=== PATIENT | female | born 2000 | race Caucasian/White ===

== ENCOUNTER 2025-07-24 19:18 | Inpatient (IN) | payer OTHER, SELFPAY ==
[2025-07-24 19:17] VITALS: BMI 32.8
[2025-07-24 19:30] VITALS: BP 133/92; PULSE 118
[2025-07-24 19:31] VITALS: PULSE 122; RESP 18; TEMP 36.9; O2SAT 98; O2SAT 99
[2025-07-24] MEDS: Lactated Ringers 1,000 ML 50 ML IV (19:37)
[2025-07-24 20:01] LABS: Hematocrit 30.5 % (37-47); Hemoglobin 9.6 g/dL (12.0-15.0); Immature Granulocytes Count 0.060 X10^3/uL (0.0-0.0); Mean Corp Hgb Conc 31.5 g/dL (32-36); Mean Corpuscular Volume 74.8 fL (81-99); Mean Platelet Vol. 9.2 fl (6.2-12.0); NRBC Flagged by Analyzer 0 % (0-5); Platelet Count 284 K/mm3 (150-450); RBC Distribution Width CV 15.5 % (11.6-14.6); RBC Distribution Width SD 41.3 fl (35.1-43.9); Red Blood Count 4.08 M/mm3 (4.2-5.4); White Blood Count 10.8 K/mm3 (4.4-11.0)
[2025-07-24 20:25] LABS: Syphilis Antibodies Nonreactive (Nonreactive)
--- NOTE | 2025-07-24 20:25 | HP.PCM.OB_ITS ---
HPI - General General Date of Admission: 07/24/25 Date of Service: 07/24/25 Chief Complaint: induction of labor HPI Narrative DIANA PARRA, is a 25 F who presents [facility] Home Medications ?Medication ?Instructions ?Recorded ?Last Taken ?Type aspirin 81 mg tablet,delayed 81 mg PO DAILY 07/24/25 Unknown History release vitamins no.102-iron 90 cap PO 07/06 04/30 Unknown History mg-folate 1 mg-dha 200 mg capsule Allergy/AdvReac Type Severity Reaction Status Date / Time methylphenidate (From Allergy Hives Verified 07/24/25 19:37 Concerta) tree nut (tree nuts) Allergy Mouth gets Verified 07/24/25 19:37 itchy latex AdvReac Itching Verified 07/24/25 19:37 Surgical History (Updated 07/24/25 @ 20:04 by Noreen Mckeon) History of surgery Social History Smoking Status: Never smoker Vital Signs Vital Signs Vital Signs: 07/24/25 19:30 07/24/25 19:30 07/24/25 19:31 Temperature Temperature Source Pulse Rate 118 H 122 H Respiratory Rate Blood Pressure 133/92 H BP Systolic 133 BP Diastolic 92 Pulse Ox 07/24/25 19:31 07/24/25 19:31 07/24/25 19:31 Temperature Temperature Source Temporal Pulse Rate Respiratory Rate 18 Blood Pressure BP Systolic BP Diastolic Pulse Ox 98 07/24/25 19:31 07/24/25 19:31 Temperature 98.5 F Temperature Source Pulse Rate Respiratory Rate Blood Pressure BP Systolic BP Diastolic Pulse Ox 99 Weight Weight: 95.254 kg Body Mass Index (BMI) 32.8 Labs Labs Labs: Hct, (37-47) 30.5 % L Hgb, (12.0-15.0) 9.6 g/dL L Syphilis Total Ab Pending
--- NOTE | 2025-07-24 20:25 | PCM.HP.OB ---
HPI - General General Date of Admission: 07/24/25 Date of Service: 07/24/25 Chief Complaint: induction of labor HPI Narrative DIANA PARRA, is a 25 F who presents for elective induction of labor Maternal Data Information Final IVELISSE: 07/25/25 Gestational age: 39+6 PFSH PFSH Home Medications ?Medication ?Instructions ?Recorded ?Last Taken ?Type aspirin 81 mg tablet,delayed 81 mg PO DAILY 07/24/25 Unknown History release vitamins no.102-iron 90 cap PO 07/24/25 Unknown History mg-folate 1 mg-dha 200 mg capsule Allergy/AdvReac Type Severity Reaction Status Date / Time methylphenidate (From Allergy Hives Verified 07/24/25 19:37 Concerta) tree nut (tree nuts) Allergy Mouth gets Verified 07/24/25 19:37 itchy latex AdvReac Itching Verified 07/24/25 19:37 Surgical History History of surgery Social History Smoking Status: Never smoker History 1 Elective abortions Hx Para 0 Spontaneous abortions Hx # Term Pregnancies Ectopic pregnancies Hx # Pregnancies Multiple births # of living children NST FHR Rate Baby A Baseline: 150 Variability:: Moderate Accelerations:: 15 x 15 Decelerations:: None NST Reactive:: Yes Uterine Activity:: none ROS Constitutional Constitutional: Denies fatigue, fever(s) or malaise Eyes Eyes: Denies change in vision ENT HEENT: Denies dizziness or headache(s) Cardiovascular Cardiovascular: Denies chest pain, dyspnea or lightheadedness Respiratory/Chest Respiratory/Chest: Denies cough or dyspnea Gastrointestinal Gastrointestinal: Denies change in bowel habits Genitourinary Genitourinary: Denies burning urination or genital lesions Integumentary Integumentary: Denies rash Neurologic Neurologic: Denies confusion, dizziness, headache(s), numbness or weakness Vital Signs Vital Signs Vital Signs: 07/24/25 19:30 07/24/25 19:30 07/24/25 19:31 Temperature Temperature Source Pulse Rate 118 H 122 H Respiratory Rate Blood Pressure 133/92 H BP Systolic 133 BP Diastolic 92 Pulse Ox 07/24/25 19:31 07/24/25 19:31 07/24/25 19:31 Temperature Temperature Source Temporal Pulse Rate Respiratory Rate 18 Blood Pressure BP Systolic BP Diastolic Pulse Ox 98 07/24/25 19:31 07/24/25 19:31 Temperature 98.5 F Temperature Source Pulse Rate Respiratory Rate Blood Pressure BP Systolic BP Diastolic Pulse Ox 99 Weight Weight: 95.254 kg Body Mass Index (BMI) 32.8 Physical Exam Const alert and no apparent distress General Appearance: cooperative HEENT normocephalic Resp normal respiratory effort Cardio regular rate GI soft to palpation GI Narrative: gravid, nontender, appropriate for gestational age Extremity no calf tenderness General Extremity: edema Skin no wounds Rashes: No rashes noted Psych activity/motor behavior normal Labs Labs Labs: Hct, (37-47) 30.5 % L Hgb, (12.0-15.0) 9.6 g/dL L Syphilis Total Ab, (Nonreactive) Nonreactive Assessment & Plan (1) Elective induction of labor planned: (2) 39 weeks gestation of : PLAN: Plan cytotec/arevalo Unable to place arevalo 1/50/-2 Cytotec placed
[2025-07-24 20:44] VITALS: PULSE 99; O2SAT 98
[2025-07-25] VITALS (73 sets, daily range): BP systolic 106–138; BP diastolic 61–87; PULSE 77–112; RESP 16–20; TEMP 36.1–37.2; O2SAT 97–100
[2025-07-25] MEDS: Oxytocin 15 Units/NS 250ml 15 UNITS/250 ML IV.SOLN 2 UNITS IV (04:20)
[2025-07-25] MEDS: Lactated Ringers 1,000 ML 999 ML IV ×2 (17:50→20:36)
[2025-07-25] MEDS: fentaNYL-bupivacaine (epidural) 100 ML BAG EPIDURAL (18:15)
[2025-07-25] MEDS: Lactated Ringers 1,000 ML 200 ML IV (20:35)
[2025-07-25] MEDS: Oxytocin 15 Units/NS 250ml 15 UNITS/250 ML IV.SOLN 334 UNITS IV (22:13)
--- NOTE | 2025-07-25 22:34 | EX.PCM.OBVAG ---
Assessment & Plan (1) (spontaneous vaginal delivery): (2) 39 weeks gestation of : Maternal Data Information Final IVELISSE: 07/25/25 Gestational age: 40 Vaginal Delivery Maternal Presentation Maternal Presentation: Elective Induction Type of Induction: Pitocin and Cytotec Vaginal Delivery Information Procedure Performed: Spontaneous Vaginal Delivery Surgeon/Practitioner: Taniya Weiss Date of Procedure: 07/25/25 Pre-Procedure Diagnosis: Term Post-Procedure Diagnosis: Type of anesthesia: Epidural Estimated Blood Loss: 250 cc Time of Delivery: 22:09 Findings Description of procedure: Elective induction of labor with Cytotec and pitocin.Once patient was complete she began pushing and pushed for approximately 1 hour. The vertex delivered over an intact perineum. There was a loose nuchal cord x 1 that was easily reduced. The anterior and posterior shoulders then delivered spontaneously. The cried upon delivery and was placed on the maternal abdomen. The cord was clamped and cut after one minute. Cord blood was collected. The placenta delivered with gentle traction. There were was a1st degree laceration that was repaired with 2-0 Vicryl. All sponge and instruments counted were correct. 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
[2025-07-25] MEDS: Oxytocin 15 Units/NS 250ml 15 UNITS/250 ML IV.SOLN 83 UNITS IV (22:50)
[2025-07-26] VITALS (14 sets, daily range): BP systolic 108–122; BP diastolic 64–85; PULSE 88–106; RESP 16; TEMP 36.3–36.8; O2SAT 97–100
--- NOTE | 2025-07-26 05:27 | NURSING ---
This RN bedside to kate. Pt crying in bed and stating she is overstimulated because is crying. This RN helped to soothe and comfort mom. Support and encouragement given. Pt states she is feeling better and will try to rest at this time
[2025-07-26] MEDS: Benzocaine/Lanolin/Aloe Vera 85 GM Spray 1 SPRAY TOPICAL (09:34)
[2025-07-26] MEDS: GLYCERIN/WITCH HAZEL (TUCKS) MED..PAD 1 EACH TOPICAL (09:34)
--- NOTE | 2025-07-26 09:37 | PCM.PN.OB ---
Subjective Subjective Doing well. Ambulating and voiding without difficulty. Mild lochia. Breast feeding. Objective Data Objective Data Vital Signs: Vital Signs Temp Pulse Resp BP Pulse Ox O2 Del Method 97.7 F L 88 16 117/67 98 Room Air 07/26/25 03:34 07/26/25 03:34 07/26/25 03:34 07/26/25 03:34 07/26/25 03:34 07/26/25 03:34 Oxygen Delivery Method Room Air Weight: 95.254 kg Body Mass Index (BMI) 32.8 Intake & Output: Intake and Output for Last 24 Hours 07/24/25 07/25/25 07/26/25 23:59 23:59 23:59 Intake Total . / . 4285.78 / 4285.78 250 / 250 Output Total 1200 / 1200 1400 / 1400 Balance ..17 3085.78 / 3085.78 -1150 / -1150 Lab / Micro Data 07/24/25 19:37 ROS Constitutional Constitutional: Denies headache(s) Cardiovascular Cardiovascular: Denies chest pain or dyspnea Gastrointestinal Gastrointestinal: Denies nausea or vomiting Genitourinary Genitourinary: Denies dysuria Physical Exam Const alert, oriented x3 and no apparent distress General Appearance: cooperative and comfortable Eyes PERRL and EOMs intact bilaterally Resp normal respiratory effort GI soft to palpation and non-tender Narrative: Fundus firm, below umbilicus. Uterus Palpation: uterus fundus firm ( below umbilicus) Extremity normal to inspection and full ROM Neuro oriented x3 and CN's II-XII intact bilaterally Psych mental status grossly normal Assessment & Plan (1) (spontaneous vaginal delivery): PLAN: Plan Routine care
--- NOTE | 2025-07-26 10:30 | CASEMGMT ---
Social Work Assessment Labor and Delivery Unit Patient Address: [id number], [place] [address] Phone number: [phone] Date of Referral:07/24/25 Time of Referral: 19:54 Referred By: Taniya Weiss Date of Intervention: 07/26/25 Time of Intervention: 10:30 Reason for Referral: Patient?s mother is an alcoholic History obtained from: Mother of baby (MOB), father of baby and review of medical records. ?([facility]AN[facility]/ [place]). FOB refused to reveal his age other than to say ?I?m in my 30?s?. ? Household composition: MOB, FOB and their son Catalino, born on 07/25/25. Patient's parent/guardian status: ???MOB and FOB have been together for 8 years and have been for 3 of those years. MOB denied any previous or current issues of domestic violence and described a positive relationship with the FOB. Medical History: : 1, ?Para, now 1. ?MOB received care through [facility] beginning at 6 weeks and 6 days. ?Apgars: 8 and 9.? Weight: 7lbs, 7oz. ?Flower Cutter: Dr. Moseley through [facility] in [place]. Educational Status: MOB and FOB denied any issues with reading, writing or learning comprehension. MOB earned her high school diploma and the FOB reported he earned 2 degrees.? When asked about the degrees, FOB refused to provide any details. The MOB spoke up and stated the degrees were Associates Degrees. No additional information was shared. Financial Status: MOB and FOB reported that their income is sufficient to meet the needs of their family at this time. MOB and FOB are both employed full-time. Supplies: MOB reported they have the supplies they need for baby at this time including but not limited to: Car seat, bassinet, crib, pack-n-play, diapers, bottles, breast pump and clothing. Childcare/Caregiver(s): MOB reported that she gets 8 weeks of maternity leave and after that, the FOB will provide childcare. FOB reported his work is seasonal and he will be able to stay home with baby. MOB and FOB denied any barriers/needs related to childcare/caregiving. Transportation: Both MOB and FOB are licensed drivers and have a reliable vehicle to get baby to and from all medical appointments. MOB and FOB denied any issues/barriers to transportation at this time. Programs/Agencies Involved: MOB and FOB denied any previous/and/or current program/agency involvement. Children Services/Legal Issues: MOB and FOB denied any previous or current Children Services and/or legal involvement. Behavioral Health Issues: None reported/denied. ? Mental Health History: RUTH reported she has a history of anxiety, however is not on any medications and reported previous anxiety was job related. MOB reported once she changed her job, she was not longer anxious. MOB was noted by nursing staff to be anxious after delivering , however was stated to be doing much better on this date since the MOB was able to get some sleep. MOB stated she had not slept in over 48 hours. MOB denied any current anxiety and/or depression. FOB denied any MH history. Substance Use History: MOB and FOB denied any history or current drug and/or alcohol abuse. ? Family History: RUTH?s mother is an alcoholic but has been sober for the past 7-10 years. Drug Screens: None obtained for the MOB or baby during this admission. Family/Social Stressors:?? Denied. Support Systems: RUTH identified her biggest support as ?our parents and all of our family really?. Depression/Shaken Baby/Safe Sleeping: Manager Underwriting provided verbal and written education on PPD, increased risk factors for PPD, Safe Sleeping and Shaken Baby.? MOB and FOB both verbalized an understanding.??? ASSESSMENT: MOB and FOB provided consent to social work visit. Upon arrival, the MOB was in bed, preparing to feed baby and the FOB was close-by on the couch. ?MOB was verbally engaged, and cooperative. FOB was distant, only spoke when spoken to, asked on two occasions ?how much longer is this going to take? and presented as very guarded. FOB tried to protect his personal information and shared only the minimal amount he deemed necessary. Manager Underwriting observed positive interaction between the MOB and FOB as the MOB felt at ease asking for help and the FOB assisted the MOB in getting comfortable while feeding . Manager Underwriting observed positive interaction with the MOB towards the . MOB was observed to be very gentle, attentive and nurturing towards . At this point in time, ?s paternal grandmother (PGM) came in and seemed to also be ?put out? that social organization professor was present, shook her head and stated she had to go through it too when she delivered. PGM interrupted the social organization professor and re-instated she was the grandmother and hadn?t yet gotten to see her grandchild (visiting hours didn?t start for another 30 minutes). Manager Underwriting shared with the MOB that she just needed to talk with her alone and would then be done which the MOB provided consent to. MOB reported feeling safe in her home and denied any previous or current domestic violence, unmanaged mental health issues either with herself or with the FOB, and also denied any concerns with any drug or alcohol abuse either with herself or with the FOB. It should be noted that while the FOB had been in the room during the assessment, both the MOB and FOB denied any family history of mental health issues or drug or alcohol abuse issues; both had answered no, however when social organization professor spoke with the MOB alone and asked about her mother being an alcoholic, that?s when the MOB admitted her mother was but is now sober. Safe Plan of Care for infant related to substance use: N/A PLAN: For MOB and baby to be discharged when medically ready. No other services requested or indicated. Taniya Garvin, JEWEL HOLE GAUGER, ROUGHER MACHINE OPERATOR
[2025-07-26] MEDS: SELF ADMINISTRATION OF MEDS 1 EACH NOTE (13:04)
[2025-07-27] MEDS: SELF ADMINISTRATION OF MEDS 1 EACH NOTE (00:24)
[2025-07-27 01:14] VITALS: BP 134/78; PULSE 92; RESP 16; TEMP 36.5; O2SAT 98
--- NOTE | 2025-07-27 07:08 | PCM.PN.OB ---
Subjective Subjective Doing well. Ambulating and voiding without difficulty. Mild lochia. Breast feeding. Objective Data Objective Data Vital Signs: Vital Signs Temp Pulse Resp BP Pulse Ox O2 Del Method 97.7 F L 92 16 134/78 H 98 Room Air 07/27/25 01:14 07/27/25 01:14 07/27/25 01:14 07/27/25 01:14 07/27/25 01:14 07/27/25 01:14 Oxygen Delivery Method Room Air Weight: 95.254 kg Body Mass Index (BMI) 32.8 Intake & Output: Intake and Output for Last 24 Hours 07/25/25 07/26/25 07/27/25 23:59 23:59 23:59 Intake Total 4285.78 / 4285.78 250 / 250 Output Total 1200 / 1200 1400 / 1400 Balance 3085.78 / 3085.78 -1150 / -1150 Lab / Micro Data 07/24/25 19:37 Physical Exam Const alert and no apparent distress Narrative: Fundus firm, below umbilicus. Assessment & Plan (1) (spontaneous vaginal delivery): PLAN: Plan Discharge home
--- NOTE | 2025-07-27 07:09 | PCM.DC.SUM ---
Providers Date of Admission: 07/24/25 Date of Discharge: 07/27/25 Primary Care Physician: Lacey Primary Care Phys Reason For Visit: VAG Diagnosis Discharge Diagnosis (1) (spontaneous vaginal delivery): Status: Acute Code(s): O80 - Encounter for full-term uncomplicated delivery Plan Discharge home Medications at Discharge Home Medications vitamins no.102-iron 90 mg-folate 1 mg-dha 200 mg capsule cap PO 07/24/25 Hospital Course Operations None Procedures None Summary of Care Provided Minutes Spent on Discharge: 20 Hospital Course: IOL at 39 weeks without complcication breast feeding Physical Exam Const alert and no apparent distress Narrative: Fundus firm, below umbilicus. Weight / BMI Weight Weight: 95.254 kg Body Mass Index (BMI) 32.8 PRE- weight 90.718 kg PRE- Body Mass Index 31.4 (BMI) ABG / Lab / Microbiology Data 07/24/25 19:37 D/C Instructions DC O2, CPAP, BIPAP Needs Home O2 Discharge instructions: No Meaningful Use Info Meaningful Use Meaningful Use Diagnoses (Choose all that apply): None applicable Discharge Plan Admission Admit Date/Time: 07/24/25 19:18 Primary Reason for Your Visit: labor Attending Provider: Taniya Weiss Primary Care Provider: Care Physician,Lacey Primary Discharge Orders/Prescriptions Prescriptions: Continued PNV [id number] 90 mg iron- 1 mg-200 mg capsule PO Discontinued aspirin 81 mg tablet,delayed release (DR/EC) 81 mg PO DAILY Referrals / Follow Up: Care Physician,No Primary [Primary Care Provider, Medical] Disposition Disposition (needs filled in before D/C Order can be placed): Home, Self Care
[2025-07-27 08:05] VITALS: BP 113/78; PULSE 77; RESP 16; TEMP 36.6; O2SAT 98
[2025-07-27 13:08] VITALS: BP 121/82; PULSE 81; RESP 12; TEMP 36.8
--- NOTE | 2025-07-31 13:53 | NURSING ---
Follow up phone call made, no answer, left voicemail
== END 2025-07-27 13:45 | disposition home or self-care (01) | DRG 807 ==
PROVIDERS: Admitting Provider Obstetrics & Gynecology; Referring Provider Obstetrics & Gynecology; Visit Provider Obstetrics & Gynecology
DX: O69.81X0 Labor and delivery complicated by cord around neck, without compression, not applicable or unspecified (principal); Z37.0 Single live birth; O70.0 First degree perineal laceration during delivery; O77.0 Labor and delivery complicated by meconium in amniotic fluid; Z79.82 Long term (current) use of aspirin; Z3A.40 40 weeks gestation of pregnancy
CPT/HCPCS: 59025; 59050; 85025; 86780; 86850; 86900; 86901; 99221; G0378